=== PATIENT | female | born 1990 | race Two or more races ===

== ENCOUNTER 2020-04-30 07:15 | Observation (INO) | payer SELFPAY ==
[2020-04-30] MEDS ORDERED: IV RINGERS,LACTATED 1000ML 1,000 ML IV SCH (08:32)
[2020-04-30 08:58] LABS: AMNIO PT NEGATIVE
[2020-04-30 08:59] LABS: BILIRUBIN,URINE NEGATIVE (NEG); CLARITY,URINE CLEAR; COLOR,URINE YELLOW; NITRITE,URINE NEGATIVE (NEG); PH,URINE 6.5 (<5.0-8.0); PROTEIN,URINE NEGATIVE (NEG-TRACE); UROBILINOGEN,URINE 0.2 mg/dL (0.2 mg/dL)
[2020-04-30 09:15] LABS: BACTERIA,URINE FEW /HPF (0-FEW); RBC,URINE 0 /HPF (0-2); SQUAMOUS EPITHELIAL CELL,UR MANY /LPF
== END 2020-04-30 10:48 | disposition home or self-care (01) ==
LOC: 3 SO LND 07:15
PROVIDERS: ADMIT Obstetrics & Gynecology; ATTEND Obstetrics & Gynecology
DX: O62.9 Abnormality of forces of labor, unspecified (principal); O42.92 Full-term premature rupture of membranes, unspecified as to length of time between rupture and onset of labor; O99.89 Other specified diseases and conditions complicating pregnancy, childbirth and the puerperium; R51 Headache; Z3A.39 39 weeks gestation of pregnancy; Z79.899 Other long term (current) drug therapy
CPT/HCPCS: 36415; 81001; 84112; 87086; G0378; G0379; U0003

== ENCOUNTER 2020-05-02 22:01 | Inpatient (IN) | payer SELFPAY ==
[~2020-05-02] VITALS: Ht 165.1 cm; Wt 84.8 kg
[2020-05-02] MEDS ORDERED: OXYTOCIN 30 UNIT/500 ML PREMIX 500 ML IV PRN (22:15)
[2020-05-02] MEDS ORDERED: fentaNYL PF VIAL 100 MCG/2 ML VIAL IVP PRN (22:15)
[2020-05-02] MEDS ORDERED: LIDOCAINE 1% PF 30 ML VIAL. INJ PRN (22:15)
[2020-05-02] MEDS ORDERED: 0.9 % SODIUM CHLORIDE 10 ML DISP.SYRIN. IV PRN (22:15)
[2020-05-02] MEDS ORDERED: IBUPROFEN 400 MG TABLET. PO PRN (22:15)
[2020-05-02] MEDS ORDERED: MAG HYDROX/ALUMINUM HYD/SIMETH 30 ML ORAL.SUSP PO PRN (22:15)
[2020-05-02] MEDS ORDERED: IV RINGERS,LACTATED 1000ML 1,000 ML IV PRN ×2 (22:15)
[2020-05-02] MEDS ORDERED: TERBUTALINE 1 MG/ML VIAL. SQ PRN (22:15)
[2020-05-02] MEDS ORDERED: ONDANSETRON PF 4 MG/2 ML VIAL. IVP PRN ×2 (22:15)
[2020-05-02] MEDS ORDERED: ACETAMINOPHEN 325 MG TABLET. PO PRN ×2 (22:15)
[2020-05-02 22:45] LABS: BASO % 0 % (0-3); EOS # 0.1 x10^3/uL (0.0-0.7); EOS % 1 % (0-3); HEMATOCRIT 32.1 % (36.0-47.0); LYMPH # 2.6 x10^3/uL (1.0-4.8); LYMPH % 21 % (24-48); MEAN CORPUSCULAR HEMOGLOBIN 30 pg (25-35); MEAN CORPUSCULAR HGB CONC 34 g/dL (31-37); MEAN CORPUSCULAR VOLUME 87 fL (79-100); MONO # 0.9 x10^3/uL (0.0-1.1); MONO % 7 % (0-9); NEUT # 8.6 x10^3/uL (1.8-7.7); NEUT % 71 % (31-73); PLATELET COUNT 233 x10^3/uL (140-400); RED BLOOD COUNT 3.71 x10^6/uL (3.50-5.40); RED CELL DISTRIBUTION WIDTH 14.4 % (11.5-14.5); WHITE BLOOD COUNT 12.1 x10^3/uL (4.0-11.0)
[2020-05-02 22:46] LABS: BILIRUBIN,URINE NEGATIVE (NEG); CLARITY,URINE CLEAR; COLOR,URINE YELLOW; NITRITE,URINE NEGATIVE (NEG); PROTEIN,URINE NEGATIVE (NEG-TRACE); UROBILINOGEN,URINE 0.2 mg/dL (0.2 mg/dL)
[2020-05-02 22:53] VITALS: BP 135/75
[2020-05-02 22:53] LABS: BARBITURATES NEG (NEG); BENZODIAZEPINES NEG (NEG); CANNABINOIDS NEG (NEG); COCAINE NEG (NEG); METHADONE NEG (NEG); OPIATES NEG (NEG); PHENCYCLIDINE NEG (NEG)
[2020-05-02 22:54] LABS: AMPHETAMINE/METHAMPHETAMINE NEG (NEG)
[2020-05-02 22:56] LABS: WBC,URINE OCC /HPF (0-4)
[2020-05-02 22:57] LABS: BACTERIA,URINE 0 /HPF (0-FEW); SQUAMOUS EPITHELIAL CELL,UR FEW /LPF
[2020-05-02] MEDS ORDERED: IV RINGERS,LACTATED 1000ML 1,000 ML IV SCH (23:14)
--- NOTE | 2020-05-03 05:10 | PDOC1 ---
[facility] H&P Date of Admission: Date of Admission: May 02, 2020 at 22:01 History of Present Illness: EDC: 05/03/20 LMP: 08/11/19 HPI: The pt is a 29y @ 40.0 by 11wk u/s who presents to L&D with LOF. The pt was found to be grossly ruptured. At that time the pt was dilated to 3 cm. The pts has been relatively uncomplicated. PMH: denies PSH: Denies Meds: PNV All: NKDA OBHx: TSVD SH: no tob, no EtOH Medications: Meds: Current Medications Medications (Trade) Dose Ordered Sig/Arianne Route PRN Reason Start Time Stop Time Status Last Admin Dose Admin Ringer's Solution 1,000 ml @ 125 mls/hr Q8H PRN IV hydration 05/02/20 22:15 05/03/20 03:42 Fentanyl Citrate (Fentanyl 2ml Vial) 100 mcg PRN Q30MIN PRN IVP Severe pain 05/02/20 22:15 05/03/20 03:08 Ondansetron HCl (Zofran) 8 mg PRN Q6HRS PRN IVP NAUSEA/VOMITING 1ST CHOICE 05/02/20 22:15 05/03/20 00:14 Oxytocin/Sodium Chloride 500 ml @ 0 mls/hr CONT PRN PRN IV Post delivery bleeding 05/02/20 22:15 05/03/20 04:08 Allergies: Coded Allergies: No Known Drug Allergies (Unverified , 04/30/20) Physical Exam: Vital Signs: Vital Signs Date Time Temp Pulse Resp B/P (MAP) Pulse Ox O2 Delivery O2 Flow Rate FiO2 05/03/20 03:37 18 05/03/20 03:08 Room Air 05/02/20 22:53 98.5 66 135/75 (95) 98.5 FHT: 150s no acels, mild variable decels with ctxs, MLTV [place]: 2-3 min SVE: 9/C/-1 PE: GENERAL: No apparent distress. Alert and oriented. HEENT: Head normocephalic, atraumatic. NECK: Supple LUNGS: Clear to auscultation. HEART: RRR, S1, S2 present, pulses intact ABDOMEN: Soft, positive bowel sounds. EXTREMITIES: No cyanosis or edema. NEUROLOGIC: Normal speech, normal tone PSYCHIATRIC: Normal affect, normal mood. SKIN: No ulceration. Labs: Laboratory Tests Test 05/02/20 22:30 White Blood Count 12.1 x10^3/uL (4.0-11.0) H Red Blood Count 3.71 x10^6/uL (3.50-5.40) Hemoglobin 11.0 g/dL (12.0-15.5) L Hematocrit 32.1 % (36.0-47.0) L Mean Corpuscular Volume 87 fL (79-100) Mean Corpuscular Hemoglobin 30 pg (25-35) Mean Corpuscular Hemoglobin Concent 34 g/dL (31-37) Red Cell Distribution Width 14.4 % (11.5-14.5) Platelet Count 233 x10^3/uL (140-400) Neutrophils (%) (Auto) 71 % (31-73) Lymphocytes (%) (Auto) 21 % (24-48) L Monocytes (%) (Auto) 7 % (0-9) Eosinophils (%) (Auto) 1 % (0-3) Basophils (%) (Auto) 0 % (0-3) Neutrophils # (Auto) 8.6 x10^3/uL (1.8-7.7) H Lymphocytes # (Auto) 2.6 x10^3/uL (1.0-4.8) Monocytes # (Auto) 0.9 x10^3/uL (0.0-1.1) Eosinophils # (Auto) 0.1 x10^3/uL (0.0-0.7) Basophils # (Auto) 0.0 x10^3/uL (0.0-0.2) Urine Collection Type Unknown Urine Color Yellow Urine Clarity Clear Urine pH 7.0 (<5.0-8.0) Urine Specific [place] <=1.005 (1.000-1.030) Urine Protein Negative mg/dL (NEG-TRACE) Urine Glucose (UA) Negative mg/dL (NEG) Urine Ketones (Stick) Negative mg/dL (NEG) Urine Blood Trace (NEG) Urine Nitrite Negative (NEG) Urine Bilirubin Negative (NEG) Urine Urobilinogen Dipstick 0.2 mg/dL (0.2 mg/dL) Urine Leukocyte Esterase Trace (NEG) Urine RBC 1-2 /HPF (0-2) Urine WBC Occ /HPF (0-4) Urine Squamous Epithelial Cells Few /LPF Urine Bacteria 0 /HPF (0-FEW) Urine Opiates Screen Neg (NEG) Urine Methadone Screen Neg (NEG) Urine Barbiturates Neg (NEG) Urine Phencyclidine Screen Neg (NEG) Urine Amphetamine/Methamphetamine Neg (NEG) Urine Benzodiazepines Screen Neg (NEG) Urine Cocaine Screen Neg (NEG) Urine Cannabinoids Screen Neg (NEG) Urine Ethyl Alcohol Neg (NEG) Treponema pallidum Antibody Nonreactive (Nonreactive) Laboratory Tests 05/02/20 22:30 Laboratory Tests 05/02/20 22:30 Assessment & Plan: A/P 29y @ 40.0 by 11wk u/s 1.) SROM progressing well 2.) GHTN only 2 mild BPs, UA neg for protein, no s/s of preeclampsia 3.) H/o PP depression 4.) GTT 137 5.) s/p TDAP and Flu 6.) Fetus cat I FHT 7.) GBS neg KARAL FLOREZ MD May 03, 2020 05:10
--- NOTE | 2020-05-03 05:11 | PDOC ---
VAGINAL DELIVERY DATE DATE: 05/03/20 TIME: 05:10 TIME Patient delivered a viable male over intact perineum at 0440. Wt 6lb 11oz. Apgars 9/9. Placenta delivered spontaneously, intact with 3VC. No lacerations noted. Good hemostasis noted. 20U of Pitocin infused with IVF. EBL 200cc. WEIGHT Weight [ ] KARLA FLOREZ MD May 03, 2020 05:11
[2020-05-03] MEDS ORDERED: ZOLPIDEM 5 MG TABLET. PO PRN (05:15)
[2020-05-03] MEDS ORDERED: BENZOCAINE 20% TOPICAL AEROSOL SPRAY 57GM CAN. TP PRN (05:15)
[2020-05-03] MEDS ORDERED: PHENYLEPH/MINERAL OIL/PETROLAT RECTAL OINTMENT TUBE. RC PRN (05:15)
[2020-05-03] MEDS ORDERED: MAG HYDROX/ALUMINUM HYD/SIMETH 30 ML ORAL.SUSP PO PRN (05:15)
[2020-05-03] MEDS ORDERED: 0.9 % SODIUM CHLORIDE 10 ML DISP.SYRIN. IV PRN (05:15)
[2020-05-03] MEDS ORDERED: SIMETHICONE 80 MG TAB.CHEW PO PRN (05:15)
[2020-05-03] MEDS ORDERED: MMR per PROTOCOL. MC PRN (05:15)
[2020-05-03] MEDS ORDERED: OXYTOCIN 30 UNIT/500 ML PREMIX 500 ML IV PRN (05:15)
[2020-05-03] MEDS ORDERED: diphenhydrAMINE HCL 25 MG CAPSULE PO PRN (05:15)
[2020-05-03] MEDS ORDERED: oxyCODONE/APAP 5/325 1 TAB TABLET PO PRN (05:15)
[2020-05-03] MEDS ORDERED: MAGNESIUM HYDROXIDE 2,400 MG/30 ML ORAL.SUSP. PO PRN (05:15)
[2020-05-03] MEDS ORDERED: DOCUSATE SODIUM 100 MG CAPSULE. PO PRN (05:15)
[2020-05-03] MEDS ORDERED: TDaP (Adacel) per PROTOCOL. MC PRN (05:15)
[2020-05-03] MEDS ORDERED: HYDROCORTISONE 1% TOPICAL OINTMENT 30GM TUBE. TP PRN (05:15)
[2020-05-03] MEDS ORDERED: ACETAMINOPHEN 325 MG TABLET. PO PRN (05:15)
[2020-05-03 08:50] VITALS: BP 103/60
[2020-05-03] MEDS: PRENATAL MULTIVITAMIN TABLET. PO SCH (09:37)
[2020-05-03] MEDS: IBUPROFEN 400 MG TABLET. PO PRN ×2 (09:38→20:05)
[2020-05-03 09:50] VITALS: BP 104/61
[2020-05-03 17:39] VITALS: BP 100/62
[2020-05-03 23:00] VITALS: BP 92/62
[2020-05-04 05:45] VITALS: BP 108/65
[2020-05-04] MEDS: IBUPROFEN 400 MG TABLET. PO PRN (05:53)
[2020-05-04 07:48] LABS: HEMATOCRIT 28.5 % (36.0-47.0); HEMOGLOBIN 9.4 g/dL (12.0-15.5)
[2020-05-04] MEDS ORDERED: FERROUS SULFATE 325 MG TABLET. PO SCH (08:00)
[2020-05-04] MEDS: PRENATAL MULTIVITAMIN TABLET. PO SCH (08:28)
--- NOTE | 2020-05-04 08:39 | PDOC ---
[employer] [facility] PROGRESS NOTE Subjective: Pt with good pain control. Lay PO. Voiding. Minimal lochia. Denies COTTON, changes in vision or abd pain Objective: Vital Signs: Vital Signs Date Time Temp Pulse Resp B/P (MAP) Pulse Ox O2 Delivery O2 Flow Rate FiO2 05/03/20 08:50 98.6 74 18 103/60 (74) 100 Room Air 98.6 Vital Signs Date Time Temp Pulse Resp B/P (MAP) Pulse Ox O2 Delivery O2 Flow Rate FiO2 05/04/20 05:45 97.9 80 14 108/65 (79) 98 Room Air 97.9 Labs: Laboratory Tests Test 05/04/20 06:35 Hemoglobin 9.4 g/dL (12.0-15.5) L Hematocrit 28.5 % (36.0-47.0) L Mean Corpuscular Hemoglobin Concent 33 g/dL (31-37) Laboratory Tests 05/04/20 06:35 Laboratory Tests 05/04/20 06:35 Physical Exam: GENERAL: No apparent distress. Alert and oriented. HEENT: Head normocephalic, atraumatic. NECK: Supple LUNGS: Clear to auscultation. HEART: RRR, S1, S2 present, pulses intact ABDOMEN: Soft, positive bowel sounds. EXTREMITIES: No cyanosis or edema. NEUROLOGIC: Normal speech, normal tone PSYCHIATRIC: Normal affect, normal mood. SKIN: No ulceration. FFNT below umb no C/C/E Assessment & Plan: A/P 29y PPD #1 s/p 1.) PP doing well 2.) GHTN only 2 mild BPs, all nml since delivery, UA neg for protein, no s/s of preeclampsia 3.) H/o PP depression 4.) s/p TDAP and Flu 5.) Anemia Hgb 11.0 -> 9.4 6.) Cont PP care KARLA FLOREZ MD May 04, 2020 08:39
[2020-05-04] MEDS ORDERED: IBUP-1060 PO (10:48)
[2020-05-04] MEDS ORDERED: DOCU-109 PO (10:48)
--- NOTE | 2020-05-04 10:58 | DS ---
DATE OF DISCHARGE: 05/04/2020 ADMISSION DIAGNOSES: 1. Intrauterine at 39 weeks and 6 days by an 11-week ultrasound. 2. Spontaneous rupture of membranes. 3. Gestational hypertension. 4. History of depression. 5. One-hour glucose tolerance test of 137. 6. GBS negative. DISCHARGE DIAGNOSES: 1. Intrauterine at 39 weeks and 6 days by an 11-week ultrasound. 2. Spontaneous rupture of membranes. 3. Gestational hypertension. 4. History of depression. 5. One-hour glucose tolerance test of 137. 6. GBS negative. PROCEDURE: Spontaneous vaginal delivery. BRIEF HOSPITAL COURSE: The patient is a 29-year-old 2, para 1-0-0-1, who presented to Labor and Delivery at 39 weeks and 6 days by an 11-week ultrasound with leakage of fluid. The patient was found to be grossly ruptured. At that time, the patient was 3 cm dilated. The patient was regularly ying and ultimately progressed to complete. She delivered by vaginal delivery early the next morning. See delivery note for full details. Of note, the patient was found to have a few mild range blood pressures prior to delivery. The patient had no signs or symptoms of preeclampsia and had negative proteinuria. After the delivery, the patient remained with normal range blood pressures. Of note, on admission, her hemoglobin was found to be 11.0, and after delivery, was found to be 9.4. On day #1, the patient was meeting all discharge criteria and desired discharge home. The patient was subsequently discharged. DISCHARGE INSTRUCTIONS: The patient was told not to lift anything greater than 20 pounds, have pelvic rest for 6 weeks. CALL IF: The patient is to call if she has fevers, chills, nausea, vomiting, abdominal pain or any additional questions or concerns. FOLLOWUP APPOINTMENT: The patient is to follow up in [address] [facility] or in our office for her appointment. DISCHARGE MEDICATIONS: The patient was given a prescription for Motrin 800 mg 30 pills and Colace 100 mg, 30 pills. KARLA FLOREZ MD DR: RAÚL/[email or web address] JOB#: [id number] / [id number] DINO
[2020-05-04 12:30] VITALS: BP 103/65
[2020-05-04 16:00] VITALS: BP 120/81
--- NOTE | 2020-05-04 16:00 | NUR ---
Discharge instructions given to pt via [employer] interpreter for the deaf #[id number]. Pt verbalized understanding. Pt discharged home with and spouse.
== END 2020-05-04 17:20 | disposition home or self-care (01) | DRG 807 ==
LOC: 3 SO LND 22:01 → OBSVTOIN 22:01 → 3 NORTH 05-03 09:00
PROVIDERS: ADMIT Obstetrics & Gynecology; ATTEND Obstetrics & Gynecology
PROC: 10E0XZZ Delivery of Products of Conception, External Approach (ICD-10-PCS; principal; 2020-05-03)
PROC: 3E033VJ Introduction of Other Hormone into Peripheral Vein, Percutaneous Approach (ICD-10-PCS; 2020-05-03)
DX: O13.4 Gestational [pregnancy-induced] hypertension without significant proteinuria, complicating childbirth (principal); Z37.0 Single live birth; O90.81 Anemia of the puerperium; Z3A.39 39 weeks gestation of pregnancy
CPT/HCPCS: 36415; 80307; 81001; 85014; 85018; 85025; 86592; 86850; 86900; 86901; 87086; J2405; J2590; J3010; J7120; G0378